=== PATIENT | male | born 1960 | race Caucasian/White ===

== ENCOUNTER 2017-01-28 18:55 | Emergency (ER) | payer MEDICARE, OTHER ==
[~2017-01-28 18:55] MED LIST: ALBU17I INH; IBUP800T23 PO; LEXA10TA PO; LIDO5T TD; LORA-392 PO; LOSA25TA31 PO; METO50TA PO; OMEP20TA39 PO; REST30CA PO
[2017-01-28 18:57] VITALS: BP 128/63; PULSE 92; RESP 20; TEMP 98.9; O2SAT 98
--- NOTE | 2017-01-28 23:51 | PD ---
HPI Chief Complaint: Psychiatric Symptoms Time Seen by Provider: 23:47 Travel History International Travel<30 days: No Contact w/Intl Traveler<30days: No Traveled to known affect area: No History of Present Illness HPI Patient comes in requesting psychiatric evaluation for suicidal ideations ongoing since 2010. Patient states he was thinking about jumping off a bridge but instead got on his bike and came here to see about getting help. Patient denies any medical concerns at this time. Denies any chest pain, shortness breath, fevers without pain, nausea, vomiting, back pain, or numbness or tingling anywhere. Patient denies anything making his symptoms better or worse. Patient states that he does have a history of asthma, but continues to smoke and recently smoked some marijuana. PFSH Past Medical History Asthma: Yes (Hx) Blood Disorders: No Anxiety: Yes Depression: Yes Cardiovascular Problems: No Diminished Hearing: No Endocrine: No Genitourinary: No Hepatitis: Yes (Hep C+ per pt - Dx'd December 2013 per pt.) Hypertension: Yes (Per pt.) Immune Disorder: No Musculoskeletal: Yes (RT. 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 ) Past Surgical History Other Surgery: Yes Social History Alcohol Use: Yes (EVERYDAY ) Tobacco Use: Yes (0.5-1PPD PACK DAY) Substance Use: Yes (MARIJUANA ) Allergies-Medications (Allergen,Severity, Reaction): Coded Allergies: Sulfa (Unverified Allergy, Unknown, 01/28/17) Per pt. Uncoded Allergies: Morphine Related Products (Allergy, Unknown, 07/21/14) Per [facility] Pharmacist - [place], [place] location. Reported Meds & Prescriptions Reported Meds & Active Scripts Active Review of Systems Except as stated in HPI: all other systems reviewed are Neg Physical Exam Narrative GENERAL: Well-developed, well nourished, in no acute distress, and non-ill appearing. SKIN: Focused skin assessment warm and dry. HEAD: Atraumatic. Normocephalic. EYES: Pupils equal and round. EOMI. No scleral icterus. No injection or drainage. ENT: No nasal bleeding or discharge. Mucous membranes pink and moist. NECK: Trachea midline. Supple. No nuclear rigidity. CARDIOVASCULAR: Regular rate and rhythm. No murmur appreciated. RESPIRATORY: No accessory muscle use. No respiratory distress. Clear to auscultation. Breath sounds equal bilaterally. MUSCULOSKELETAL: No obvious deformities. No clubbing. No cyanosis. No edema. Full range of motion. NEUROLOGICAL: Awake and alert. No obvious cranial nerve deficits. Motor grossly within normal limits. Normal speech. PSYCHIATRIC: Appropriate mood and affect. Data Data Last Documented VS Vital Signs Date Time Temp Pulse Resp B/P Pulse Ox O2 Delivery O2 Flow Rate FiO2 01/28/17 18:57 98.9 92 20 128/63 98 Room Air Orders Complete Blood Count With Diff (01/28/17 23:46) Comprehensive Metabolic Panel (01/28/17 23:46) Psych Screen (01/28/17 23:46) Drug Screen, Random Urine (01/28/17 23:46) Alcohol (Ethanol) (01/28/17 23:46) Salicylates (Aspirin) (01/28/17 23:46) Tylenol (Acetaminophen) (01/28/17 23:46) Labs Laboratory Tests Test 01/29/17 01/29/17 00:14 00:15 White Blood Count 9.7 TH/MM3 Red Blood Count 3.58 MIL/MM3 Hemoglobin 11.9 GM/DL Hematocrit 34.6 % Mean Corpuscular Volume 96.7 FL Mean Corpuscular Hemoglobin 33.3 PG Mean Corpuscular Hemoglobin 34.4 % Concent Red Cell Distribution Width 13.5 % Platelet Count 331 TH/MM3 Mean Platelet Volume 7.1 FL Neutrophils (%) (Auto) 71.7 % Lymphocytes (%) (Auto) 16.2 % Monocytes (%) (Auto) 8.7 % Eosinophils (%) (Auto) 2.7 % Basophils (%) (Auto) 0.7 % Neutrophils # (Auto) 7.0 TH/MM3 Lymphocytes # (Auto) 1.6 TH/MM3 Monocytes # (Auto) 0.8 TH/MM3 Eosinophils # (Auto) 0.3 TH/MM3 Basophils # (Auto) 0.1 TH/MM3 CBC Comment DIFF FINAL Differential Comment Sodium Level 134 MEQ/L Potassium Level 3.8 MEQ/L Chloride Level 100 MEQ/L Carbon Dioxide Level 25.3 MEQ/L Anion Gap 9 MEQ/L Blood Urea Nitrogen 16 MG/DL Creatinine 1.11 MG/DL Estimat Glomerular Filtration 69 ML/MIN Rate Random Glucose 119 MG/DL Calcium Level 8.4 MG/DL Total Bilirubin 0.2 MG/DL Aspartate Amino Transf 31 U/L (AST/SGOT) Alanine Aminotransferase 51 U/L (ALT/SGPT) Alkaline Phosphatase 74 U/L Total Protein 7.4 GM/DL Albumin 2.5 GM/DL Salicylates Level 2.4 MG/DL Acetaminophen Level LESS THAN 2.0 MCG/ML Ethyl Alcohol Level LESS THAN 3 MG/DL Urine Opiates Screen NEG Urine Barbiturates Screen NEG Urine Amphetamines Screen NEG Urine Benzodiazepines Screen NEG Urine Cocaine Screen NEG Urine Cannabinoids Screen POS MDM Medical Decision Making Medical Screen Exam Complete: Yes Emergency Medical Condition: Yes Differential Diagnosis Homicidal, suicidal, electrolyte abnormality, substance abuse, alcohol intoxication, depression, other Narrative Course Patient was seen and examined. Labs were obtained and reviewed. Patient medically cleared for further treatment and evaluation by psych. Final disposition per psych. Diagnosis Primary Impression: Medical clearance for psychiatric admission Condition: Stable Kemal Wilks Jan 28, 2017 23:51
[2017-01-29 00:41] LABS: BASOPHIL # 0.1 TH/MM3 (0-0.2); BASOPHIL % 0.7 % (0.0-2.0); EOSINOPHIL # 0.3 TH/MM3 (0-0.4); EOSINOPHIL % 2.7 % (0.0-4.0); HEMATOCRIT 34.6 % (39.0-51.0); HEMO FLAGS DIFF FINAL; LYMPH % 16.2 % (9.0-44.0); LYMPHOCYTE # 1.6 TH/MM3 (1.0-4.8); MEAN CELL VOLUME 96.7 FL (80.0-100.0); MEAN CORPUSCULAR HEMOGLOBIN 33.3 PG (27.0-34.0); MEAN CORPUSCULAR HGB CONC 34.4 % (32.0-36.0); MONO % 8.7 % (0.0-8.0); NEUT % 71.7 % (16.0-70.0); PLATELET COUNT 331 TH/MM3 (150-450); RED BLOOD COUNT 3.58 MIL/MM3 (4.50-5.90); RED CELL DISTRIBUTION WIDTH 13.5 % (11.6-17.2); WHITE BLOOD COUNT 9.7 TH/MM3 (4.0-11.0)
[2017-01-29 00:48] LABS: AMPHETAMINE, URINE NEG (NEG); BARBITURATES, URINE NEG (NEG); COCAINE, URINE NEG (NEG)
[2017-01-29 00:54] LABS: ANION GAP 9 MEQ/L (5-15); AST (GOT) 31 U/L (15-37); BICARBONATE 25.3 MEQ/L (21.0-32.0); BLOOD UREA NITROGEN 16 MG/DL (7-18); CHLORIDE 100 MEQ/L (98-107); GLOMERULAR FILTRATION RATE 69 ML/MIN (>89); POTASSIUM 3.8 MEQ/L (3.5-5.1); SODIUM (NA) 134 MEQ/L (136-145)
[2017-01-29 00:57] LABS: ALKALINE PHOSPHATASE 74 U/L (45-117); ALT (GPT) 51 U/L (12-78); TOTAL BILIRUBIN ADULT 0.2 MG/DL (0.2-1.0)
[2017-01-29 01:13] LABS: ACETAMINOPHEN LESS THAN 2.0 MCG/ML (10.0-30.0)
[2017-01-29 07:04] VITALS: BP 135/72; PULSE 72; RESP 16; O2SAT 97
--- NOTE | 2017-01-29 13:56 | PD ---
History of Present Illness Chief Complaint: Psychiatric Symptoms Time Seen by Provider: 13:40 Travel History International Travel<30 Days: No Contact w/Intl Traveler<30days: No Known affected area: No Legal Status Legal Status: Voluntary History of Present Illness: History of Present Illness HPI Patient is a 56 year old male with a reported history of depression who presents on a voluntary basis requesting psychiatric evaluation for suicidal ideations . He reported to ED provider that he "was thinking about jumping off a bridge but instead got on his bike and came here to see about getting help." EMR is reviewed . He has had several visits to ED for psychiatric evaluations. He was admitted to [facility] in 2014. Current toxicology is positive for cannabinoids. he was monitored in [facility] and presented no suicidality. Patient is seen. He is alert and oriented. calm and cooperative. there is no indication of any psychosis, no rich and no significant symptoms of depression. He slept well and ate well. He tells me that he was in care home x 1 week and when he was released he found that his belongings had been taken from his room and therefore he has to move from there . This he reports is causing him " a lot of stress". He came to [facility] " to get some resources" he denies any suicidal or homicidal ideation at this time. he has not taken any psychiatric medication in over one year. PFSH Past Medical History Asthma: Yes (Hx) Blood Disorders: No Anxiety: Yes Depression: Yes Cardiovascular Problems: No Diminished Hearing: No Endocrine: No Genitourinary: No Hepatitis: Yes (Hep C+ per pt - Dx'd December 2013 per pt.) Hypertension: Yes (Per pt.) Immune Disorder: No Musculoskeletal: Yes (RT. 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 ) Past Surgical History Other Surgery: Yes Psychiatric History Psychiatric History Hx Psychiatric Treatment: Hx tx for psychiatry by and . States that he didn't see another one since 2008. Hx BA once before this. No current tx History of Inpatient Treatment: Yes ([facility] in 2014.) Social History Hx Alcohol Use: Yes (EVERYDAY ) Hx Tobacco Use: Yes (0.5-1PPD PACK DAY) Hx Substance Use: Yes (MARIJUANA ) Substance Use Type: Alcohol, Crack, Marijuana, Amphetamines-Stimulants, Nicotine/Cigarettes, Prescription Medications, Benzos (Valium,Xanax), Heroin, Cocaine, Synth Opiates-Pain Pills, Cough-Cold Pills Hx of Substance Use Treatment: No Family Psychiatric History none reported Allergies-Medications (Allergen,Severity, Reaction): Coded Allergies: Sulfa (Unverified Allergy, Unknown, 01/28/17) Per pt. Uncoded Allergies: Morphine Related Products (Allergy, Unknown, 07/21/14) Per [facility] Pharmacist - [place], [place] location. Reported Meds & Prescriptions Reported Meds & Active Scripts Active Review of Systems Except as stated in HPI: all other systems reviewed are Neg Cardiovascular: COMPLAINS OF: Chest pain, Palpitations Exam Alert: Yes Congress: Person (ox4) Mood: Calm Affect: Appropriate Speech: Clear, Logical Eye Contact: Normal Memory Intact: Comment (no impairmetn) Hallucinations: Other (Negative) Delusions: No Suicidal: Ideation (negative) Homicidal: Ideation (Negative) Insight/Judgement poor. not impaired [facility] Medical Decision Making Medical Record Reviewed: Yes Assessment/Plan 56 year old male with reported hx of depression who is under a voluntary status after he presented to ed requesting a psychiatric evaluation as he was feeling stressed. The patient does not present any acute psychiatric symptomatology at this time. No suicidal or homicidal ideation. He is requesting resources for housing. Orders Complete Blood Count With Diff (01/28/17 23:46) Comprehensive Metabolic Panel (01/28/17 23:46) Psych Screen (01/28/17 23:46) Drug Screen, Random Urine (01/28/17 23:46) Alcohol (Ethanol) (01/28/17 23:46) Salicylates (Aspirin) (01/28/17 23:46) Tylenol (Acetaminophen) (01/28/17 23:46) Diet Regular Basic (01/29/17 Breakfast) Diet Regular Basic (01/29/17 Lunch) Results Vital Signs Date Time Temp Pulse Resp B/P Pulse Ox O2 Delivery O2 Flow Rate FiO2 01/29/17 07:04 72 16 135/72 97 Room Air 01/28/17 18:57 98.9 92 20 128/63 98 Room Air Laboratory Tests Test 01/29/17 01/29/17 00:14 00:15 White Blood Count 9.7 Red Blood Count 3.58 Hemoglobin 11.9 Hematocrit 34.6 Mean Corpuscular Volume 96.7 Mean Corpuscular Hemoglobin 33.3 Mean Corpuscular Hemoglobin 34.4 Concent Red Cell Distribution Width 13.5 Platelet Count 331 Mean Platelet Volume 7.1 Neutrophils (%) (Auto) 71.7 Lymphocytes (%) (Auto) 16.2 Monocytes (%) (Auto) 8.7 Eosinophils (%) (Auto) 2.7 Basophils (%) (Auto) 0.7 Neutrophils # (Auto) 7.0 Lymphocytes # (Auto) 1.6 Monocytes # (Auto) 0.8 Eosinophils # (Auto) 0.3 Basophils # (Auto) 0.1 CBC Comment DIFF FINAL Differential Comment Sodium Level 134 Potassium Level 3.8 Chloride Level 100 Carbon Dioxide Level 25.3 Anion Gap 9 Blood Urea Nitrogen 16 Creatinine 1.11 Estimat Glomerular Filtration 69 Rate Random Glucose 119 Calcium Level 8.4 Total Bilirubin 0.2 Aspartate Amino Transf 31 (AST/SGOT) Alanine Aminotransferase 51 (ALT/SGPT) Alkaline Phosphatase 74 Total Protein 7.4 Albumin 2.5 Salicylates Level 2.4 Acetaminophen Level LESS THAN 2.0 Ethyl Alcohol Level LESS THAN 3 Urine Opiates Screen NEG Urine Barbiturates Screen NEG Urine Amphetamines Screen NEG Urine Benzodiazepines Screen NEG Urine Cocaine Screen NEG Urine Cannabinoids Screen POS Diagnosis Primary Impression: Medical clearance for psychiatric admission Additional Impression: Adjustment disorder Psychiatrically Cleared: Yes Referrals: [facility] (Out patient) call for appointment Departure Forms: Tests/Procedures Patient Instructions: General Instructions, Stress (ED) Med/ Other Pt Specific Info: No Meds Exist/No RX given Disposition: 01 DISCHARGE HOME Condition: Stable Problem Qualifiers Additional Impression: Adjustment disorder Qualified Code: F43.22 - Adjustment disorder with anxious mood Deja Agurire Jan 29, 2017 13:56
== END 2017-01-29 15:14 | disposition home or self-care (01) ==
LOC: NEPD 18:55 → NEPJ 01-29 15:14
DX: F43.20 Adjustment disorder, unspecified (principal); F32.9 Major depressive disorder, single episode, unspecified; J45.909 Unspecified asthma, uncomplicated; F41.9 Anxiety disorder, unspecified; B19.20 Unspecified viral hepatitis C without hepatic coma; I10 Essential (primary) hypertension; I25.2 Old myocardial infarction; F17.200 Nicotine dependence, unspecified, uncomplicated
CPT/HCPCS: 80053; 80307; 85025; 99284

== ENCOUNTER 2017-08-26 22:55 | Inpatient (IN) | payer MEDICARE, OTHER ==
[~2017-08-26] VITALS: Ht 172.7 cm; Wt 68.4 kg
[2017-08-26 22:57] VITALS: BP 144/83; PULSE 77; RESP 16; TEMP 97.9; O2SAT 98
[2017-08-26] MEDS ORDERED: RESP: ALBUTEROL 2.5 MG/IPRATROPIUM 0.5 MG NEB (SCH) NEB ONE (23:30)
[2017-08-26] MEDS ORDERED: predniSONE 20 MG TAB PO ONE (23:30)
--- NOTE | 2017-08-26 23:41 | PD ---
HPI Chief Complaint: Respiratory Symptoms Time Seen by Provider: 23:16 Travel History International Travel<30 days: No Contact w/Intl Traveler<30days: No Traveled to known affect area: No History of Present Illness HPI Patient is a 56-year-old homeless male presents emergency department for 2 complaints. The first is that he is feeling suicidal and was trying to go to [email or web address], he states he feels like she has a bronchial infection and so decided to stop and be seen here on his way there. Patient is a smoker, 1 pack per day. Denies any fevers endorses cough, no sputum production, endorsed congestion, cough symptoms for the past 4 days. No body aches no nausea no vomiting. Patient has very vague suicidal statement, no planning. PFSH Past Medical History Asthma: Yes (Hx) Blood Disorders: No Anxiety: Yes Depression: Yes Cardiovascular Problems: No Diminished Hearing: No Endocrine: No Genitourinary: No Hepatitis: Yes (Hep C+ per pt - Dx'd December 2013 per pt.) Hypertension: Yes (Per pt.) Immune Disorder: No Musculoskeletal: Yes (RT. 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 ) Tetanus Vaccination: < 5 Years Past Surgical History Abdominal Surgery: Yes (hernia surgery) Other Surgery: Yes Social History Alcohol Use: Yes (EVERYDAY ) Tobacco Use: Yes (0.5-1PPD PACK DAY) Substance Use: Yes (MARIJUANA, pt states smoked crack yesterday) Allergies-Medications (Allergen,Severity, Reaction): Coded Allergies: Sulfa (Sulfonamide Antibiotics) (Unverified Allergy, Unknown, 08/26/17) Per pt. Uncoded Allergies: Morphine Related Products (Allergy, Unknown, 07/21/14) Per [facility] Pharmacist - [place], [place] location. Reported Meds & Prescriptions Reported Meds & Active Scripts Active Proair Hfa 8.5 GM Inh (Albuterol Sulfate) 90 Mcg/Act Aer 1 Puff INH Q4H PRN 108 mcg/actuation Azithromycin 250 Mg Tab 250 Mg PO DIRECTED Take 2 tabs (500 mg) on day 1 then 1 tab daily x 4 days. Prednisone 20 Mg Tab 60 Mg PO DAILY 4 Days Review of Systems Except as stated in HPI: all other systems reviewed are Neg Physical Exam Narrative GENERAL: Well-developed well-nourished no obvious distress unkempt appearance. SKIN: Focused skin assessment warm/dry. HEAD: Atraumatic. Normocephalic. EYES: Pupils equal and round. No scleral icterus. No injection or drainage. ENT: No nasal bleeding or discharge. Mucous membranes pink and moist. NECK: Trachea midline. No JVD. CARDIOVASCULAR: Regular rate and rhythm. No murmur appreciated. RESPIRATORY: No accessory muscle use. Inspiratory and extra Tory wheezing heard in all lung ziegler, good air entry, no rales no rhonchi, no accessory muscle use, normal respiratory rate. Breath sounds equal bilaterally. GASTROINTESTINAL: Abdomen soft, non-tender, nondistended. Hepatic and splenic margins not palpable. MUSCULOSKELETAL: No obvious deformities. No clubbing. No cyanosis. No edema. NEUROLOGICAL: Awake and alert. No obvious cranial nerve deficits. Motor grossly within normal limits. Normal speech. PSYCHIATRIC: Endorses suicidal ideation without planning. Denies homicidal ideation, denies audiovisual hallucinations per Data Data Last Documented VS Vital Signs Date Time Temp Pulse Resp B/P (MAP) Pulse Ox O2 Delivery O2 Flow Rate FiO2 08/26/17 22:57 97.9 77 16 144/83 (103) 98 Room Air Orders Orders Complete Blood Count With Diff (08/26/17 23:16) Comprehensive Metabolic Panel (08/26/17 23:16) Psych Screen (08/26/17 23:16) Drug Screen, Random Urine (08/26/17 23:16) Alcohol (Ethanol) (08/26/17 23:16) Thyroid Stimulating Hormone (08/26/17 23:16) Chest, Pa & Lat (08/26/17 ) Albuterol-Ipratropium Neb (Duoneb Neb) (08/26/17 23:30) Prednisone (Deltasone) (08/26/17 23:30) Labs Laboratory Tests Test 08/27/17 00:00 White Blood Count 9.9 TH/MM3 Red Blood Count 4.09 MIL/MM3 Hemoglobin 13.6 GM/DL Hematocrit 39.1 % Mean Corpuscular Volume 95.6 FL Mean Corpuscular Hemoglobin 33.2 PG Mean Corpuscular Hemoglobin Concent 34.7 % Red Cell Distribution Width 14.6 % Platelet Count 244 TH/MM3 Mean Platelet Volume 7.3 FL Neutrophils (%) (Auto) 85.7 % Lymphocytes (%) (Auto) 10.4 % Monocytes (%) (Auto) 3.6 % Eosinophils (%) (Auto) 0.0 % Basophils (%) (Auto) 0.3 % Neutrophils # (Auto) 8.5 TH/MM3 Lymphocytes # (Auto) 1.0 TH/MM3 Monocytes # (Auto) 0.4 TH/MM3 Eosinophils # (Auto) 0.0 TH/MM3 Basophils # (Auto) 0.0 TH/MM3 CBC Comment DIFF FINAL Differential Comment MDM Medical Decision Making Medical Screen Exam Complete: Yes Emergency Medical Condition: Yes Differential Diagnosis Bronchitis, suicidal ideation, poor social circumstance. Narrative Course Patient room to the emergency department, sinus symptoms consistent with bronchitis, will cover with prednisone rishi ballesteros ordered a chest x-ray ordered, basic labs ordered, after reassessment after breathing treatments patient would be medically cleared, if you would like to stay here for voluntary evaluation I think that is reasonable. I do not think he meets Onofre act criteria at this time After his breathing treatments his lungs have been cleared, and reassessment he is breathing normally eating some snacks from his back. On further history the patient lost his 6 years ago on ' and has been depressed and suicidal today but he has no specific plan. He would like to stay on a voluntary basis and speak with 1 of our psychiatrists in the morning. I think this is reasonable. He is medically cleared for psychiatric evaluation Diagnosis Primary Impression: Bronchitis Med/Other Pt SpecificInfo: Prescription(s) given Scripts Albuterol 8.5 GM Inh (Proair Hfa 8.5 GM Inh) 90 Mcg/Act Aer 1 PUFF INH Q4H Y for SHORTNESS OF BREATH, #1 INHALER 0 Refills 108 mcg/actuation Prov: Luis Sellers MD 08/27/17 Azithromycin (Azithromycin) 250 Mg Tab 250 MG PO DIRECTED for Infection, #6 TAB 0 Refills Take 2 tabs (500 mg) on day 1 then 1 tab daily x 4 days. Prov: Luis Sellers MD 08/27/17 Prednisone (Prednisone) 20 Mg Tab 60 MG PO DAILY for 4 Days, #12 TAB 0 Refills Prov: Luis Sellers MD 08/27/17 Condition: Stable Luis Sellers MD Aug 26, 2017 23:41
--- NOTE | 2017-08-26 23:56 | RADRPT ---
EXAM DATE/TIME: 08/26/2017 23:38 [facility] COMPARISON: No previous studies available for comparison. INDICATIONS : Short of breath and cough. MEDICAL HISTORY : None. SURGICAL HISTORY : None. ENCOUNTER: Initial ACUITY: 1 day PAIN SCORE: 0/10 LOCATION: Bilateral chest FINDINGS: Hyperinflation and attenuated lung markings suggest underlying emphysema. Heart size is normal. Lungs are clear. Osseous structures demonstrate degenerative changes. CONCLUSION: Emphysema suspected. Omkar Bernardo MD on August 26, 2017 at 23:54 Board Certified Radiologist. This report was verified electronically.
[2017-08-27] MEDS ORDERED: PRED20 PO
[2017-08-27] MEDS ORDERED: AZIT250T3 PO
[2017-08-27] MEDS ORDERED: ALBUAER3 INH
[2017-08-27 00:17] LABS: AUTOMATED NEUTROPHIL # 8.5 TH/MM3 (1.8-7.7); BASOPHIL % 0.3 % (0.0-2.0); HEMATOCRIT 39.1 % (39.0-51.0); HEMOGLOBIN 13.6 GM/DL (13.0-17.0); LYMPH % 10.4 % (9.0-44.0); MEAN CELL VOLUME 95.6 FL (80.0-100.0); MEAN CORPUSCULAR HEMOGLOBIN 33.2 PG (27.0-34.0); MEAN CORPUSCULAR HGB CONC 34.7 % (32.0-36.0); MEAN PLATELET VOLUME 7.3 FL (7.0-11.0); MONO % 3.6 % (0.0-8.0); MONOCYTE # 0.4 TH/MM3 (0-0.9); NEUT % 85.7 % (16.0-70.0); PLATELET COUNT 244 TH/MM3 (150-450); RED BLOOD COUNT 4.09 MIL/MM3 (4.50-5.90); RED CELL DISTRIBUTION WIDTH 14.6 % (11.6-17.2); WHITE BLOOD COUNT 9.9 TH/MM3 (4.0-11.0)
[2017-08-27 01:09] LABS: ALBUMIN 3.5 GM/DL (3.4-5.0); ALKALINE PHOSPHATASE 60 U/L (45-117); ALT (GPT) 26 U/L (12-78); AST (GOT) 14 U/L (15-37); BICARBONATE 26.3 MEQ/L (21.0-32.0); BLOOD UREA NITROGEN 22 MG/DL (7-18); CHLORIDE 105 MEQ/L (98-107); CREATININE 1.07 MG/DL (0.60-1.30); GLOMERULAR FILTRATION RATE 72 ML/MIN (>89); GLUCOSE,RANDOM 110 MG/DL (74-106); SODIUM (NA) 140 MEQ/L (136-145); TOTAL BILIRUBIN ADULT 0.3 MG/DL (0.2-1.0)
[2017-08-27 02:54] VITALS: BP 129/71; PULSE 77; RESP 16; O2SAT 97
[2017-08-27 07:15] VITALS: BP 135/82; PULSE 80; RESP 20; TEMP 98.5; O2SAT 98
[2017-08-27 11:57] VITALS: BP 125/75; PULSE 86; RESP 20; TEMP 98.5; O2SAT 98
[2017-08-27 16:48] VITALS: BP 141/77; PULSE 56; RESP 18; TEMP 97.4; O2SAT 97
[2017-08-28 02:17] VITALS: BP 115/63; PULSE 60; RESP 18; O2SAT 98
[2017-08-28 06:34] VITALS: BP 119/73; PULSE 75; RESP 19; O2SAT 99
[2017-08-28 10:30] VITALS: BP 123/77; PULSE 68; RESP 20
[2017-08-28] MEDS ORDERED: NICOTINE 21 MG/24 HR PATCH T-DERMAL ONE (10:45)
--- NOTE | 2017-08-28 11:45 | PD ---
History of Present Illness Chief Complaint: Respiratory Symptoms Time Seen by Provider: 11:00 Travel History International Travel<30 Days: No Contact w/Intl Traveler<30days: No Known affected area: No Legal Status Legal Status: Voluntary History of Present Illness: History of Present Illness HPI Patient is a 56-year-old, homeless male with record history of adjustment disorder and depressive disorder, substance use disorder who presents to emergency department for evaluation of a reported cough and respiratory complaints as well as reporting that he had been feeling suicidal. Upon evaluation by the ED screener the patient reported that " he was going to kill himself because he did not give a shit any way. He stated" there is no point anymore my , I lost my house, the girlfriend I had left. I don' t care anymore" . 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 I had a gun he would've blow my brains out. If I didn't hate water I would've jump off bridge." Electronic medical record is reviewed. Patient has been evaluated here at [facility] and has had 2 previous psychiatric admissions to her psychiatric unit one in 2007 and another one in 2014. Both where for suicidal ideation in context of significant losses reported. Current lab work includes toxicology was just negative for all substances. The patient has been monitored here in [facility] over extended period of time and he has presented no behavioral concerns and no suicidality. Patient is seen with MARISOL Sainz and nurse practitioner Wallace. The patient is awake, alert, male who is dressed in hospital attire. Fair hygiene and grooming. Speech is clear, logical and goal-directed with normal rate and tone. He is vague in terms of specific dates and and symptoms. There is no evidence of any psychosis, no rich or hypomania. The patient does report that he continues to feel suicidal and that he came to the hospital because he was depressed and has been so since 2010 went his . He continues to endorse suicidal ideation with no stated plan. His mood is irritable with poor frustration tolerance. He also reports feeling depressed. Sleep is impaired with difficulty falling asleep, fair appetite, no changes in his level of energy. He goes on to say that he feels pretty hopeless due to his multiple losses. He goes on to state that he is currently not receiving any psychiatric treatment. PFSH Past Medical History Asthma: Yes (Hx) Blood Disorders: No Anxiety: Yes Depression: Yes Cardiovascular Problems: No Diminished Hearing: No Endocrine: No Genitourinary: No Hepatitis: Yes (Hep C+ per pt - Dx'd December 2013 per pt.) Hypertension: Yes (Per pt.) Immune Disorder: No Musculoskeletal: Yes (RT. 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 ) Tetanus Vaccination: < 5 Years Past Surgical History Abdominal Surgery: Yes (hernia surgery) Other Surgery: Yes Psychiatric History Psychiatric History Hx Psychiatric Treatment: Has had 2 previous psychiatric admissions to [facility]. Also reports has been admitted to [facility]. Most recent admission was to a rehabilitation facility. Record history of adjustment disorder and depressive disorder. Reports previous suicidal attempts by overdosing on Xanax, attempting to shoot himself with a pellet gun, and attempting to hang himself. History of Inpatient Treatment: Yes Guns or firearms in home: No Social History Born and raised in [place]. Currently homeless. Completed his GED. Has been twice. His last marriage ended when his in 2010. He has no children. He is on disability for back related issues as well as psychiatric issues. Hx Alcohol Use: Yes (EVERYDAY ) Hx Tobacco Use: Yes (0.5-1PPD PACK DAY) Hx Substance Use: Yes (4pack beer/day-last 1 week ago (when I have the $)) Substance Use Type: Alcohol, Crack, Marijuana, Nicotine/Cigarettes Other Substances Used: 1/2 ppd smoker, marajuana occasionally-last 3 days ago, crack-3 days ago Hx of Substance Use Treatment: Yes (released from [facility] rehabilitation several months ago. Unable to maintain sobriety) Family Psychiatric History 1 on completed suicide many years ago Allergies-Medications (Allergen,Severity, Reaction): Coded Allergies: Sulfa (Sulfonamide Antibiotics) (Unverified Allergy, Unknown, 08/26/17) Per pt. Uncoded Allergies: Morphine Related Products (Allergy, Unknown, 07/21/14) Per [facility] Pharmacist - [place], [place] location. Reported Meds & Prescriptions Reported Meds & Active Scripts Active Proair Hfa 8.5 GM Inh (Albuterol Sulfate) 90 Mcg/Act Aer 1 Puff INH Q4H PRN 108 mcg/actuation Azithromycin 250 Mg Tab 250 Mg PO DIRECTED Take 2 tabs (500 mg) on day 1 then 1 tab daily x 4 days. Prednisone 20 Mg Tab 60 Mg PO DAILY 4 Days Review of Systems Respiratory: COMPLAINS OF: Cough, Sputum production Musculoskeletal: COMPLAINS OF: Back pain Psychiatric: COMPLAINS OF: Depression, Suicidal Ideation Except as stated in HPI: all other systems reviewed are Neg Mental Status Examination Appearance: Appropriate (dressed in hospital pajapas maintaining basic hygiene) Consciousness: Alert Orientation: x4 Motor Activity: Other (patient remained in has bad) Speech: Unremarkable Language: Adequate Fund of Knowledge: Adequate Attention and Concentration: Adequate Memory: Unremarkable (patient is a poor historian.) Mood: Sad, Irritable Affect: Appropriate Thought Process & Associations: Intact, Logical, Goal directed Thought Content: Appropriate Hallucination Type: None Delusion Type: None Suicidal Ideation: Yes Suicidal Plan: No Suicidal Intention: No Homicidal Ideation: No Homicidal Plan: No Homicidal Intention: No Insight: Poor Judgment: Impulsive MDM Medical Decision Making Medical Record Reviewed: Yes Assessment/Plan Patient is a 56-year-old, homeless male with record history of adjustment disorder and depressive disorder, substance use disorder who presents to emergency department for evaluation of a reported cough and respiratory complaints as well as reporting that he had been feeling suicidal. Patient has been monitored in [facility] for extended period of time. He continues to endorse suicidal ideation with no plan reported. Patient's mood is irritable and depressed, poor frustration tolerance, hopeless, unable to contract for safety. Patient at this time will be admitted to inpatient psychiatric unit for further evaluation, stabilization, and initiation of medication, and for safety. Orders Orders Diet Regular Basic (08/27/17 Dinner) Diet Regular Basic (08/28/17 Breakfast) Nicotine 21 Mg Patch.24 Hr (Habitrol 21 (08/28/17 10:45) Diet Regular Basic (08/28/17 Lunch) Results Vital Signs Date Time Temp Pulse Resp B/P (MAP) Pulse Ox O2 Delivery O2 Flow Rate FiO2 08/28/17 10:30 68 20 123/77 (92) Room Air 08/28/17 06:34 75 19 119/73 (88) 99 Room Air 08/28/17 02:17 60 18 115/63 (80) 98 Room Air 08/27/17 16:48 Room Air 08/27/17 16:48 97.4 56 18 141/77 (98) 97 Room Air 08/27/17 11:57 98.5 86 20 125/75 (92) 98 Room Air Diagnosis Primary Impression: Bronchitis Additional Impressions: Adjustment disorder Substance use disorder Cocaine abuse Admitting Information Admitting Physician Requests: Admit Prescriptions Albuterol 8.5 GM Inh (Proair Hfa 8.5 GM Inh) 90 Mcg/Act Aer 1 PUFF INH Q4H Y for SHORTNESS OF BREATH, #1 INHALER 0 Refills 108 mcg/actuation Prov: Luis Sellers MD 08/27/17 Azithromycin (Azithromycin) 250 Mg Tab 250 MG PO DIRECTED for Infection, #6 TAB 0 Refills Take 2 tabs (500 mg) on day 1 then 1 tab daily x 4 days. Prov: Luis Sellers MD 08/27/17 Prednisone (Prednisone) 20 Mg Tab 60 MG PO DAILY for 4 Days, #12 TAB 0 Refills Prov: Luis Sellers MD 08/27/17 Condition: Stable Problem Qualifiers Additional Impressions: Adjustment disorder Qualified Codes: F43.21 - Adjustment disorder with depressed mood Deja Aguirre Aug 28, 2017 11:45
[2017-08-28] MEDS ORDERED: MAGNESIUM HYDROXIDE SUSP 30 ML CUP PO PRN (12:00)
[2017-08-28] MEDS ORDERED: ALUMINUM/MAGNESIUM/SIMETH 30 ML CUP PO PRN (12:00)
[2017-08-28 15:14] VITALS: BP 134/76; PULSE 60; RESP 17; TEMP 97.5; O2SAT 98
[2017-08-29 06:10] VITALS: BP 136/71; PULSE 65; RESP 16; TEMP 97.4; O2SAT 95
[2017-08-29] MEDS: NICOTINE 21 MG/24 HR PATCH T-DERMAL SCH (08:43)
[2017-08-29] MEDS: REMOVE OLD PATCH T-DERMAL SCH (08:43)
[2017-08-29 11:12] LABS: BICARBONATE 32.2 MEQ/L (21.0-32.0); BLOOD UREA NITROGEN 18 MG/DL (7-18); CALCIUM 8.5 MG/DL (8.5-10.1); CHLORIDE 102 MEQ/L (98-107); CREATININE 0.98 MG/DL (0.60-1.30); GLOMERULAR FILTRATION RATE 80 ML/MIN (>89); GLUCOSE,RANDOM 82 MG/DL (74-106); SODIUM (NA) 140 MEQ/L (136-145)
[2017-08-29 11:14] LABS: CHOLESTEROL 101 MG/DL (120-200)
[2017-08-29 11:39] LABS: CHOLESTEROL/ HDL RATIO 2.16 RATIO; HDL CHOLESTEROL 46.6 MG/DL (40.0-60.0); LDL CHOLESTEROL 21 MG/DL (0-99); TRIGLYCERIDES 169 MG/DL (42-150)
[2017-08-29 17:45] VITALS: BP 117/68; PULSE 73; RESP 16; TEMP 97.9; O2SAT 99
--- NOTE | 2017-08-29 18:28 | HHI.HP ---
Provisional Diagnosis Admission Date Aug 28, 2017 at 11:52 [place]. Adjustment disorder with mixed disturbances of emotion and conduct, history EtOH abuse Certification of Person's Competence To Provide Express and Informed Consent I have personally examined Hawk Minor , a person being served at [facility] on, Aug 29, 2017 18:20. Express and informed consent means consent voluntarily given in writing, by a competent person, after sufficient explanation and disclosure of the subject matter involved to enable the person to make a knowing and willful decision without any element of force, fraud, deceit, duress, or other form of constraint or coercion. This person is 18 years of age or older, is not now known to be incompetent to consent to treatment with a guardian advocate, and does not have a health care surrogate or proxy currently making medical treatment decisions. I have found this person to be one of the following: [xxx] Competent to provide express and informed consent, as defined above, for voluntary admission to this facility and is competent to provide express and informed consent for treatment. He/she has the consistent capacity to make well reasoned, willful, and knowing decisions concerning his or her medical or mental health treatment. The person fully and consistently understands the purpose of the admission for examination/placement and is fully capable of personally exercising all rights assured under [place] Incompetent to provide express and informed consent to voluntary admission, and this is incompetent to provide express and informed consent to treatment. The person must be transferred to involuntary status and a petition for a guardian advocate filed with the Circuit Court. [] Refusing to provide express and informed consent to voluntary admission but is competent to provide express and informed consent for treatment. The person must be discharged or transferred to involuntary status. Form shall be completed within 24 hours of a person's arrival at the receiving facility and filed in the clinical record of each person: 1. Admitted on a voluntary basis 2. Permitted to provide express and informed consent to his/her own treatment 3. Allowed to transfer from involuntary to voluntary status 4. Prior to permitting a person to consent to his or her own treatment after having been previously found incompetent to consent to treatment. History of Present Illness Capacity: Has Capacity HPI Patient is a 56 old white male who comes here voluntarily complaining of depression remain though the duct his back in 2010 another family deficits. H is nothing to live for anymore bilious wishes he could . Patient acknowledges being an alcoholic. The minimizes it. States he was in a rehabilitation in [facility] for about 2 weeks prior to some type of a program [facility]. A repeat relocated back to his home in [place]. States she has been drinking heavily until about 4 days ago the depression became even worse. Patient acknowledges suicidal ideation at the present time. He denies voices or visions at this time. He states he has seen a psychiatrist in the past for might be depression anxiety or bipolar disorder. He is on no psychotropics at the present time. Patient states is a mention he is he has no children. He has no support group locally. Both denies any prior physical and/or sexual abuse denies any mental health assess abuse issues and family patient is on disability for multiple back injuries, he states that he has tried sober living but he does not like the structure of the demands for working to help support those places. Review of Systems Constitutional: DENIES: Diaphoretic episodes, Fatigue, Fever, Weight gain, Weight loss, Chills, Dizziness, Change in appetite, Night Sweats Endocrine: DENIES: Heat/cold intolerance, Polydipsia, Polyuria, Polyphagia Eyes: DENIES: Blurred vision, Diplopia, Eye inflammation, Eye pain, Vision loss , Photosensitivity, Double Vision Ears, nose, mouth, throat: DENIES: Tinnitus, Hearing loss, Vertigo, Nasal discharge, Oral lesions, Throat pain, Hoarseness, Ear Pain, Running Nose, Epistaxis, Sinus Pain, Toothache, Odynophagia Respiratory: DENIES: Apneas, Cough, Snoring, Wheezing, Hemoptysis, Sputum production, Shortness of breath Cardiovascular: DENIES: Chest pain, Palpitations, Syncope, Dyspnea on Exertion , PND, Lower Extremity Edema, Orthopnea, Claudication Gastrointestinal: DENIES: Abdominal pain, Black stools, Bloody stools, Constipation, Diarrhea, Nausea, Vomiting, Difficulty Swallowing, Anorexia Genitourinary: DENIES: Sexual dysfunction, Urinary frequency, Urinary incontinence, Urgency, Hematuria, Dysuria, Nocturia, Penile Discharge, Testicular Pain, Testicular Swelling Musculoskeletal: DENIES: Joint pain, Muscle aches, Stiffness, Joint Swelling, Back pain, Neck pain Integumentary: DENIES: Abnormal pigmentation, Nail changes, Pruritus, Rash Hematologic/lymphatic: DENIES: Bruising, Lymphadenopathy Immunologic/allergic: DENIES: Eczema, Urticaria Neurologic: DENIES: Abnormal gait, Headache, Localized weakness, Paresthesias, Seizures, Speech Problems, Tremor, Poor Balance Psychiatric: COMPLAINS OF: Depression, Suicidal Ideation Past Psych History Psychological trauma history Patient denies Violence risk - others (6 mos) Low Violence risk - self (6 mos) Moderate Substance Abuse History Drugs/Alcohol past 12 months Patient active alcohol abuser Past Family Social History Coded Allergies: Sulfa (Sulfonamide Antibiotics) (Unverified Allergy, Unknown, 08/26/17) Per pt. Uncoded Allergies: Morphine Related Products (Allergy, Unknown, 07/21/14) Per [facility] Pharmacist - [place], [place] location. Active Scripts Albuterol 8.5 GM Inh (Proair Hfa 8.5 GM Inh) 90 Mcg/Act Aer, 1 PUFF INH Q4H Y for SHORTNESS OF BREATH, #1 INHALER 0 Refills 108 mcg/actuation Prov:Luis Sellers MD 08/27/17 Azithromycin (Azithromycin) 250 Mg Tab, 250 MG PO DIRECTED for Infection, #6 TAB 0 Refills Take 2 tabs (500 mg) on day 1 then 1 tab daily x 4 days. Prov:Luis Sellers MD 08/27/17 Prednisone (Prednisone) 20 Mg Tab, 60 MG PO DAILY for 4 Days, #12 TAB 0 Refills Prov:Luis Sellers MD 08/27/17 Current Medications Medications (Trade) Dose Ordered Sig/Kofi Route Start Time Stop Time Status Last Admin (Tylenol) 650 mg Q4H PRN PO 08/28/17 12:00 (Milk Of Magnesia Liq) 30 ml DAILY PRN PO 08/28/17 12:00 (Mag-Al Plus Susp Liq) 30 ml Q6H PRN PO 08/28/17 12:00 08/28/17 20:21 (Habitrol 21 Mg Patch.24 Hr) 1 patch DAILY T-DERMAL 08/29/17 09:00 08/29/17 08:43 Miscellaneous Information 1 DAILY T-DERMAL 08/29/17 09:00 08/29/17 08:43 Family Psych History Patient denies Social History Patient is no children is homeless Patient's Strengths (min. 2) Patient able [facility] patient verbal Physical Exam Patient medically cleared ED at the present time patient sitting quietly in all is in no acute distress, patient is in no respiratory distress, no complaints of abdominal pain. Patient moves all 4 extremities without difficulty no abnormal motor movements noted Vital Signs Vital Signs Date Time Temp Pulse Resp B/P (MAP) Pulse Ox O2 Delivery O2 Flow Rate FiO2 08/29/17 17:45 97.9 73 16 117/68 (84) 99 08/28/17 10:30 Room Air Lab Results Test 08/29/17 09:08 Blood Urea Nitrogen 18 MG/DL Creatinine 0.98 MG/DL Random Glucose 82 MG/DL Calcium Level 8.5 MG/DL Sodium Level 140 MEQ/L Potassium Level 3.6 MEQ/L Chloride Level 102 MEQ/L Carbon Dioxide Level 32.2 MEQ/L Anion Gap 6 MEQ/L Estimat Glomerular Filtration Rate 80 ML/MIN Triglycerides Level 169 MG/DL Cholesterol Level 101 MG/DL LDL Cholesterol 21 MG/DL HDL Cholesterol 46.6 MG/DL Cholesterol/HDL Ratio 2.16 RATIO Vitamin B12 Level 320 PG/ML Mental Status Examination Appearance: Appropriate (dressed in [facility] maintaining basic hygiene) Consciousness: Alert Orientation: x4 Motor Activity: Other (patient remained in has bad) Speech: Unremarkable Language: Adequate Fund of Knowledge: Adequate Attention and Concentration: Adequate Memory: Unremarkable (patient is a poor historian.) Mood: Sad, Irritable Affect: Appropriate Thought Process & Associations: Intact, Logical, Goal directed Thought Content: Appropriate Hallucination Type: None Delusion Type: None Suicidal Ideation: Yes Suicidal Plan: No Suicidal Intention: No Homicidal Ideation: No Homicidal Plan: No Homicidal Intention: No Insight: Poor Judgment: Impulsive Assessment & Plan Problem List: (1) Adjustment disorder ICD Codes: F43.20 - Adjustment disorder, unspecified Status: Acute (2) Substance use disorder ICD Codes: F19.90 - Other psychoactive substance use, unspecified, uncomplicated Status: Acute Assessment & Plan Estimated LOS: days patient meets criteria for further observation and assessment for his mood and us for possible withdrawal symptoms. We will also talked with counselor on Thursday to discuss possible sober living situation so the patient does not seem to be very willing to do was required to stay there Discharge Planning To be determined Request HC Surrog/Guard Advoc?: No Problem Qualifiers (1) Adjustment disorder: Qualified Codes: F43.25 - Adjustment disorder with mixed disturbance of emotions and conduct Portillo Avalos MD Aug 29, 2017 18:28
[2017-08-29] MEDS ORDERED: FLUMAZENIL 0.5 MG/5 ML VIAL IV PUSH PRN (18:30)
[2017-08-29] MEDS ORDERED: hydrOXYzine HCL 50 MG TAB PO PRN (18:30)
[2017-08-29] MEDS ORDERED: LORazepam 2 MG TAB PO PRN (18:30)
[2017-08-29] MEDS ORDERED: LORazepam 2 MG/ML VIAL IV PUSH PRN ×4 (18:30)
[2017-08-29] MEDS ORDERED: LORazepam 1 MG TAB PO PRN (18:30)
[2017-08-30 06:00] VITALS: BP 124/77; PULSE 60; RESP 16; TEMP 97.7
[2017-08-30 08:40] LABS: HEMOGLOBIN A1C 5.4 % (4.3-6.0)
[2017-08-30] MEDS: REMOVE OLD PATCH T-DERMAL SCH (08:50)
[2017-08-30] MEDS: NICOTINE 21 MG/24 HR PATCH T-DERMAL SCH (08:50)
[2017-08-30] MEDS ORDERED: NICOTINE 21 MG/24 HR PATCH T-DERMAL SCH (09:00)
[2017-08-30] MEDS ORDERED: PILL SPLITTER OTHER PRN (09:15)
[2017-08-30] MEDS: SERTRALINE HCL 50 MG TAB PO SCH (09:15)
--- NOTE | 2017-08-30 14:24 | HHI.PYPN ---
Subjective Remarks Patient was seen and case discussed with nursing. Patient minimizes his use of substances before admission. CIWA 0. He is irritable and feeling hopeless. He does express vague, superficial suicidal ideation saying "I had a gun and shoot myself." He says his last attempts was 3-4 years ago where he overdosed on his prescription Xanax. Tolerating his medications well and behaving well on the unit. Chief complaint today is insomnia Mental Status Examination Appearance: Appropriate (dressed in [facility] maintaining basic hygiene) Consciousness: Alert Orientation: x4 Motor Activity: Other (patient remained in has bad) Speech: Unremarkable Language: Adequate Fund of Knowledge: Adequate Attention and Concentration: Adequate Memory: Unremarkable (patient is a poor historian.) Mood: Sad, Irritable Affect: Appropriate Thought Process & Associations: Intact, Logical, Goal directed Thought Content: Appropriate Hallucination Type: None Delusion Type: None Suicidal Ideation: Yes Suicidal Plan: Yes (if he had a gun he would shoot himself) Suicidal Intention: No Homicidal Ideation: No Homicidal Plan: No Homicidal Intention: No Insight: Poor Judgment: Impulsive Results Vitals/IOs Vital Signs Date Time Temp Pulse Resp B/P (MAP) Pulse Ox O2 Delivery O2 Flow Rate FiO2 08/30/17 06:00 97.7 60 16 124/77 (93) 08/29/17 17:45 99 08/28/17 10:30 Room Air Assessment & Plan Problem List: (1) Adjustment disorder ICD Codes: F43.20 - Adjustment disorder, unspecified Status: Acute (2) Substance use disorder ICD Codes: F19.90 - Other psychoactive substance use, unspecified, uncomplicated Status: Acute Assessment & Plan *Trazodone 50 mg by mouth daily at bedtime Justification for Cont. Inpt. Patient will decompensate in a less restrictive setting Request HC Surrog/Guard Advoc?: No Problem Qualifiers (1) Adjustment disorder: Qualified Codes: F43.25 - Adjustment disorder with mixed disturbance of emotions and conduct Jamie Antonio DO Aug 30, 2017 14:24
--- NOTE | 2017-08-30 15:20 | EKG ---
Date Performed: 08/29/2017 Time Performed: 13:06:51 PTAGE: 56 years EKG: Sinus rhythm Since previous tracing, no significant change noted NORMAL ECG PREVIOUS TRACING : 12/29/2015 22.34 DOCTOR: Russel Spears Interpretating Date/Time 08/30/2017 15:19:23
[2017-08-30 19:02] VITALS: BP 117/70; PULSE 53; RESP 17; TEMP 98.2; O2SAT 99
[2017-08-30 19:03] VITALS: TEMP 98.2
[2017-08-30] MEDS ORDERED: traZODone HCL 50 MG TAB PO SCH (21:00)
[2017-08-31 06:08] VITALS: BP 145/70; PULSE 60; RESP 17; TEMP 98; O2SAT 98
[2017-08-31] MEDS: NICOTINE 21 MG/24 HR PATCH T-DERMAL SCH (08:15)
[2017-08-31] MEDS: SERTRALINE HCL 50 MG TAB PO SCH (08:15)
[2017-08-31] MEDS: REMOVE OLD PATCH T-DERMAL SCH (08:16)
--- NOTE | 2017-08-31 11:47 | HHI.PYPN ---
Subjective Remarks Patient seen and examined with nurse. Chart reviewed. Case discussed with nursing staff. On my examination today, the patient reports that he has been depressed since his 's passing in 2010 although this has been worse lately because the place where he had been living at had "too much drugs" and so [place]. He denies any suicidal or homicidal ideation presently. Denies any audiovisual hallucinations. Affect remains quite dysphoric. Sleep is reportedly poor. Reports that he will drink alcohol "if others are doing it" although he does not describe himself as a habitual or daily drinker. No other substance use reported. He denies side effects from medications. He does note that he has been on Zoloft in the past, although he may have taken a higher dose, he isn't sure. He does note that he has a history of asthma and is requesting albuterol inhaler as needed. No physical complaints presently. Review of Systems Except as stated in HPI: all other systems reviewed are Neg Mental Status Examination Appearance: Appropriate Consciousness: Alert Orientation: x4 Motor Activity: Other (no motor abnormalities noted. No signs of withdrawal noted.) Speech: Unremarkable Language: Adequate Fund of Knowledge: Adequate Attention and Concentration: Adequate Memory: Unremarkable Mood: Irritable, Other (dysphoric) Affect: Other (restricted and consistent with mood) Thought Process & Associations: Intact, Logical, Linear Thought Content: Appropriate Hallucination Type: None Delusion Type: None Suicidal Ideation: No Suicidal Plan: No Suicidal Intention: No Homicidal Ideation: No Homicidal Plan: No Homicidal Intention: No Insight: Fair Judgment: Impulsive Results Labs Item Value Date Time White Blood Count 9.9 TH/MM3 08/27/17 0000 Hemoglobin 13.6 GM/DL 08/27/17 0000 Platelet Count 244 TH/MM3 08/27/17 0000 Sodium Level 140 MEQ/L 08/29/17 0908 Potassium Level 3.6 MEQ/L 08/29/17 0908 Chloride Level 102 MEQ/L 08/29/17 0908 Carbon Dioxide Level 32.2 MEQ/L H 08/29/17 0908 Blood Urea Nitrogen 18 MG/DL 08/29/17 0908 Creatinine 0.98 MG/DL 08/29/17 0908 Estimat Glomerular Filtration Rate 80 ML/MIN L 08/29/17 0908 Aspartate Amino Transf (AST/SGOT) 14 U/L L 08/27/17 0000 Alanine Aminotransferase (ALT/SGPT) 26 U/L 08/27/17 0000 Alkaline Phosphatase 60 U/L 08/27/17 0000 Vitamin B12 Level 320 PG/ML 08/29/17 0908 Thyroid Stimulating Hormone 3rd Gen 1.450 uIU/ML 08/27/17 0000 Urine Opiates Screen NEG 08/26/17 0248 Urine Barbiturates Screen NEG 08/26/17 0248 Urine Amphetamines Screen NEG 08/26/17 0248 Urine Benzodiazepines Screen NEG 08/26/17 0248 Urine Cocaine Screen NEG 08/26/17 0248 Urine Cannabinoids Screen NEG 08/26/17 0248 Ethyl Alcohol Level LESS THAN 3 MG/DL 08/27/17 0000 Admission labs reviewed. Vitals/IOs Vital Signs Date Time Temp Pulse Resp B/P (MAP) Pulse Ox O2 Delivery O2 Flow Rate FiO2 08/31/17 06:08 98.0 60 17 145/70 (95) 98 08/28/17 10:30 Room Air Assessment & Plan Problem List: (1) Adjustment disorder ICD Codes: F43.20 - Adjustment disorder, unspecified Status: Acute (2) Substance use disorder ICD Codes: F19.90 - Other psychoactive substance use, unspecified, uncomplicated Status: Acute Assessment & Plan Titrate Zoloft to 50 mg daily to target low mood and titrate trazodone 200 mg at bedtime for poor sleep. Add albuterol inhaler. R/B/A for medication changes discussed with patient. Continue to monitor on the inpatient unit. Continue other medications and care as ordered. Justification for Cont. Inpt. Med changes. Monitoring for impairment in safety, none noted. Risk for decompensation in less restrictive environment. Discharge Planning Pending psychiatric stabilization Request HC Surrog/Guard Advoc?: No Problem Qualifiers (1) Adjustment disorder: Qualified Codes: F43.25 - Adjustment disorder with mixed disturbance of emotions and conduct Mauricio Bunch MD Aug 31, 2017 11:47
[2017-08-31] MEDS: traZODone HCL 50 MG TAB PO SCH (23:01)
[2017-08-31] MEDS: ACETAMINOPHEN 325 MG TAB PO PRN (23:02)
[2017-09-01 08:00] VITALS: BP 110/58; PULSE 72; RESP 16; TEMP 97.5; O2SAT 96
[2017-09-01] MEDS: REMOVE OLD PATCH T-DERMAL SCH (09:00)
[2017-09-01] MEDS: ACETAMINOPHEN 325 MG TAB PO PRN (09:05)
[2017-09-01] MEDS: SERTRALINE HCL 50 MG TAB PO SCH (09:05)
[2017-09-01] MEDS: NICOTINE 21 MG/24 HR PATCH T-DERMAL SCH (09:05)
--- NOTE | 2017-09-01 13:54 | HHI.PYPN ---
Subjective Chief Complaint: Depression Remarks Patient seen and examined with nurse. Chart reviewed. Case discussed with nursing staff. Patient reportedly remained seclusive to room but is no behavioral problem. Case discussed in treatment team. On my examination today , patient remains depressed, anhedonic and withdrawn. He denies any suicidal ideation. Sleep was improved with titration of Zoloft. No psychotic symptoms. Denies side effects from medications. No physical complaints. Review of Systems Except as stated in HPI: all other systems reviewed are Neg Mental Status Examination Appearance: Appropriate Consciousness: Alert Orientation: x4 Motor Activity: Other (no abnormal motor movements noted. No signs of any withdrawal noted.) Speech: Unremarkable Language: Adequate Fund of Knowledge: Adequate Attention and Concentration: Adequate Memory: Unremarkable Mood: Irritable, Other (dysphoric) Affect: Other (restricted) Thought Process & Associations: Intact, Logical, Linear Thought Content: Appropriate Hallucination Type: None Delusion Type: None Suicidal Ideation: No Suicidal Plan: No Suicidal Intention: No Homicidal Ideation: No Homicidal Plan: No Homicidal Intention: No Insight: Fair Judgment: Impulsive Results Labs Labs reviewed. No new labs. Vitals/IOs Vital Signs Date Time Temp Pulse Resp B/P (MAP) Pulse Ox O2 Delivery O2 Flow Rate FiO2 09/01/17 08:00 97.5 72 16 110/58 (75) 96 08/28/17 10:30 Room Air Intake and Output 09/01/17 09/01/17 09/02/17 08:00 16:00 00:00 Intake Total 240 ml Balance 240 ml Assessment & Plan Problem List: (1) Adjustment disorder ICD Codes: F43.20 - Adjustment disorder, unspecified Status: Acute (2) Substance use disorder ICD Codes: F19.90 - Other psychoactive substance use, unspecified, uncomplicated Status: Acute Assessment & Plan Continue Zoloft and trazodone as ordered. To consider further titration of Zoloft to target low mood. Continue to monitor on the inpatient unit. I have encouraged participation in groups and unit activities. Continue other medications and care as ordered. Justification for Cont. Inpt. Risk for decompensation and less restrictive environment. Discharge Planning Pending psychiatric stabilization. Request HC Surrog/Guard Advoc?: No Problem Qualifiers (1) Adjustment disorder: Qualified Codes: F43.25 - Adjustment disorder with mixed disturbance of emotions and conduct Mauricio Bunch MD Sep 01, 2017 13:54
[2017-09-01] MEDS: ALBUTEROL SULFATE 90 MCG/ACT HFA 8 GM INHALER INH PRN (17:01)
[2017-09-01 17:48] VITALS: BP 134/70; PULSE 64; RESP 18; TEMP 98.2; O2SAT 98
[2017-09-01] MEDS: traZODone HCL 50 MG TAB PO SCH (21:29)
[2017-09-02 06:11] VITALS: BP 123/68; PULSE 58; RESP 16; TEMP 98; O2SAT 97
[2017-09-02] MEDS: ALBUTEROL SULFATE 90 MCG/ACT HFA 8 GM INHALER INH PRN ×2 (08:15→19:50)
[2017-09-02] MEDS: NICOTINE 21 MG/24 HR PATCH T-DERMAL SCH (08:31)
[2017-09-02] MEDS: SERTRALINE HCL 50 MG TAB PO SCH (08:31)
[2017-09-02] MEDS: REMOVE OLD PATCH T-DERMAL SCH (09:00)
--- NOTE | 2017-09-02 12:18 | HHI.PYPN ---
Subjective Chief Complaint: Depression Remarks Patient seen and examined. Chart reviewed. Case discussed with nursing staff. Mood remains depressed although the patient denies suicidal ideation. Sleep remains somewhat poor subjectively and we discussed titration of the patient's trazodone for this. Continues to seclude in room and remains withdrawn; I have encouraged participation in groups and unit activities. Denies side effects from medications. No physical complaints. Review of Systems Except as stated in HPI: all other systems reviewed are Neg Mental Status Examination Appearance: Appropriate Consciousness: Alert Orientation: x4 Motor Activity: Other (no abnormal motor movements noted. No signs of any withdrawal noted.) Speech: Unremarkable Language: Adequate Fund of Knowledge: Adequate Attention and Concentration: Adequate Memory: Unremarkable Mood: Other (depressed) Affect: Other (restricted) Thought Process & Associations: Intact, Logical, Goal directed, Linear Thought Content: Appropriate Hallucination Type: None Delusion Type: None Suicidal Ideation: No Suicidal Plan: No Suicidal Intention: No Homicidal Ideation: No Homicidal Plan: No Homicidal Intention: No Insight: Fair Judgment: Adequate Results Labs Labs reviewed. No new labs. Vitals/IOs Vital Signs Date Time Temp Pulse Resp B/P (MAP) Pulse Ox O2 Delivery O2 Flow Rate FiO2 09/02/17 06:11 98.0 58 16 123/68 (86) 97 Assessment & Plan Problem List: (1) Adjustment disorder ICD Codes: F43.20 - Adjustment disorder, unspecified Status: Acute (2) Substance use disorder ICD Codes: F19.90 - Other psychoactive substance use, unspecified, uncomplicated Status: Acute Assessment & Plan Titrate trazodone to 150 mg at bedtime for sleep. Continue Zoloft as ordered, although we will likely titrate this agent to target low mood in succeeding days. Continue to monitor on inpatient unit. Continue other medications and care as ordered. Justification for Cont. Inpt. Medication adjustments. Risk for decompensation and less restrictive environment. Discharge Planning Pending psychiatric stabilization. Request HC Surrog/Guard Advoc?: No Problem Qualifiers (1) Adjustment disorder: Qualified Codes: F43.25 - Adjustment disorder with mixed disturbance of emotions and conduct Mauricio Bunch MD Sep 02, 2017 12:18
[2017-09-02 18:00] VITALS: BP 126/83; PULSE 77; RESP 17; TEMP 98.2; O2SAT 100
[2017-09-02] MEDS: ACETAMINOPHEN 325 MG TAB PO PRN (19:50)
[2017-09-02] MEDS: traZODone HCL 50 MG TAB PO SCH (20:05)
[2017-09-03 05:16] VITALS: BP 116/67; PULSE 61; RESP 16; TEMP 97.7; O2SAT 97
[2017-09-03] MEDS: NICOTINE 21 MG/24 HR PATCH T-DERMAL SCH (08:28)
[2017-09-03] MEDS: SERTRALINE HCL 50 MG TAB PO SCH (08:28)
[2017-09-03] MEDS: ACETAMINOPHEN 325 MG TAB PO PRN (08:31)
[2017-09-03] MEDS: REMOVE OLD PATCH T-DERMAL SCH (09:00)
--- NOTE | 2017-09-03 11:22 | HHI.PYPN ---
Subjective Chief Complaint: Depression Remarks Patient seen and examined with nurse. Chart reviewed. Case discussed with nursing staff. On my examination today, the patient continues to complain of some low mood, although he denies suicidal ideation. Remains somewhat withdrawn and anhedonic. No psychotic symptoms. Denies side effects from medications. Agreeable to titration of Zoloft. Complains of some dental pain without associated symptoms of abscess, and I do note dentition is poor. No other physical complaints. Review of Systems Except as stated in HPI: all other systems reviewed are Neg Mental Status Examination Appearance: Appropriate Consciousness: Alert Orientation: x4 Motor Activity: Other (No motor abnormal movements noted.) Speech: Unremarkable Language: Adequate Fund of Knowledge: Adequate Attention and Concentration: Adequate Memory: Unremarkable Mood: Other (depressed, improving somewhat) Affect: Blunt Thought Process & Associations: Intact, Logical, Goal directed, Linear Thought Content: Appropriate Hallucination Type: None Delusion Type: None Suicidal Ideation: No Suicidal Plan: No Suicidal Intention: No Homicidal Ideation: No Homicidal Plan: No Homicidal Intention: No Insight: Fair Judgment: Adequate Results Labs Labs reviewed. No new labs. Vitals/IOs Vital Signs Date Time Temp Pulse Resp B/P (MAP) Pulse Ox O2 Delivery O2 Flow Rate FiO2 09/03/17 05:16 97.7 61 16 116/67 (83) 97 Assessment & Plan Problem List: (1) Adjustment disorder ICD Codes: F43.20 - Adjustment disorder, unspecified Status: Acute (2) Substance use disorder ICD Codes: F19.90 - Other psychoactive substance use, unspecified, uncomplicated Status: Acute Assessment & Plan Titrate Zoloft to 100mg daily for low mood. Continue trazodone as ordered. Benzocaine gel for dental pain. Continue to monitor on an inpatient unit. Encourage participation in groups and unit activities. Continue other care as ordered. Justification for Cont. Inpt. Med changes. Discharge Planning Anticipate discharge beginning of next week. Request HC Surrog/Guard Advoc?: No Problem Qualifiers (1) Adjustment disorder: Qualified Codes: F43.25 - Adjustment disorder with mixed disturbance of emotions and conduct Mauricio Bunch MD Sep 03, 2017 11:22
[2017-09-03] MEDS ORDERED: BENZOCAINE 7.5% ORAL GEL 9.4 GM TUBE OROPHARYNG PRN (15:00)
[2017-09-03 18:12] VITALS: BP 126/69; PULSE 72; RESP 16; TEMP 98.7; O2SAT 98
[2017-09-03] MEDS: traZODone HCL 50 MG TAB PO SCH (20:43)
[2017-09-04 05:48] VITALS: BP 122/62; PULSE 57; RESP 16; TEMP 98; O2SAT 98
[2017-09-04] MEDS: NICOTINE 21 MG/24 HR PATCH T-DERMAL SCH (08:19)
[2017-09-04] MEDS: REMOVE OLD PATCH T-DERMAL SCH (09:00)
[2017-09-04] MEDS ORDERED: SERTRALINE HCL 100 MG TAB PO SCH (09:00)
[2017-09-04] MEDS ORDERED: ZOLO100T PO (10:37)
[2017-09-04] MEDS ORDERED: TRAZ50TA12 PO (10:37)
--- NOTE | 2017-09-04 10:38 | HHI.DS ---
Psychiatry Discharge Summary Inpatient Psychiatric care?: Yes Advance Directive: No Mental Health AdvanceDirective: No Health Care Proxy: No Admission Admission Date Aug 28, 2017 at 11:52 Admission Diagnosis: (1) Adjustment disorder ICD Code: F43.20 - Adjustment disorder, unspecified (2) Substance use disorder ICD Code: F19.90 - Other psychoactive substance use, unspecified, uncomplicated Brief History Patient is a 56 old white male who comes here voluntarily complaining of depression remain though the duct his back in 2010 another family deficits. H is nothing to live for anymore bilious wishes he could . Patient acknowledges being an alcoholic. The minimizes it. States he was in a rehabilitation in [facility] for about 2 weeks prior to some type of a program [facility]. A repeat relocated back to his home in [place]. States she has been drinking heavily until about 4 days ago the depression became even worse. Patient acknowledges suicidal ideation at the present time. He denies voices or visions at this time. He states he has seen a psychiatrist in the past for might be depression anxiety or bipolar disorder. He is on no psychotropics at the present time. Patient states is a mention he is he has no children. He has no support group locally. Both denies any prior physical and/or sexual abuse denies any mental health assess abuse issues and family patient is on disability for multiple back injuries, he states that he has tried sober living but he does not like the structure of the demands for working to help support those places. Tobacco Use In Past 30 Days: 5 or More Cigarettes/Day Alcohol Use: 2-3 Times Per Week Hospital Course Patient was admitted to a locked, inpatient psychiatric unit. Appropriate precautions were in place throughout patient's hospital stay. Patient was seen and examined on the unit by psychiatry and also visited by counselor. Psychotropic medications were adjusted. Patient tolerated medication changes well without side effects. Patient had improvement in presenting psychiatric symptomatology during the course of his hospital stay. There was no evidence of any suicidality or homicidality on the inpatient unit. The patient remained in good behavioral control and was medication compliant. Counselor reports that he has endeavored to arrange for placement for the patient, as he is otherwise homeless, but the patient has declined counselor's efforts. On the day of discharge: Patient seen and examined with nurse. Chart reviewed. Case discussed with nursing staff. No behavioral issues noted overnight. Case discussed in treatment team. On my examination today, the patient denies any suicidal or homicidal ideation, intent or plan on direct questioning and contracts for safety. Mood is fair and I can elicit no depressive or hypomanic/ manic symptoms at this time. He denies any audiovisual hallucinations. I can elicit no delusional beliefs. There is no evidence of any impairment in reality construction. He denies side effects from medications. He has no physical complaints. Suicide and violence risk assessment on day of discharge both suggest lower imminent risk, and the patient's level of function is adequate for outpatient care. The patient has maximized benefit from this inpatient psychiatric hospital stay and will be discharged today with psychiatric follow-up as arranged by counselor. Patient is also to follow-up with primary care. I've counseled the patient to abstain from substances of abuse. I have counseled the patient regarding warning signs for need to return to the psychiatric emergency room as part of the general safety plan. Results Blood Pressure 122 / 62 Vital Signs Date Time Temp Pulse Resp B/P (MAP) Pulse Ox O2 Delivery O2 Flow Rate FiO2 09/04/17 05:48 98.0 57 16 122/62 (82) 98 Laboratory Results Test 08/29/17 09:08 Cholesterol Level 101 MG/DL (120-200) HDL Cholesterol 46.6 MG/DL (40.0-60.0) Hemoglobin A1c 5.4 % (4.3-6.0) LDL Cholesterol 21 MG/DL (0-99) Triglycerides Level 169 MG/DL (42-150) Summary of Procedures None done Imaging Last Impressions Chest X-Ray 08/26/17 0000 Signed Impressions: Service Date/Time: Saturday, August 26, 2017 23:38 - CONCLUSION: Emphysema suspected. Omkar Bernardo MD Pending results at discharge: No Medications # of Antipsychotic meds at D/C: 0 Approp Antipsych med options 1 - Minimum of three failed multiple trials of monotherapy. 2 - Documented plan to taper to monotherapy due to previous use of multiple meds OR cross-taper in progress at D/C. 3 - Documentation of augmentation of Clozapine. 4 - Justification other than those listed in allowable values 1-3, document here : Discharge Discharge Date: Sep 04, 2017 Discharge Diagnosis: (1) Adjustment disorder Diagnosis: Principal (resolved) ICD Code: F43.20 - Adjustment disorder, unspecified Status: Acute (2) Substance use disorder Diagnosis: Secondary (counseled to quit) ICD Code: F19.90 - Other psychoactive substance use, unspecified, uncomplicated Status: Acute Pt Condition on Discharge: Stable Discharge Disposition: Discharge Home Discharge Instructions Diet Instructions: As Tolerated, No Restrictions Activities you can perform: Weight Bearing as [place] Scheduled Appointment: as per counselor's notes New Orders: BASIC METABOLIC PROF - 1 Week New Medications: Sertraline (Zoloft) 100 Mg Tab 100 MG PO DAILY for Mental Health for 10 Days, #10 TAB 2 Refills Trazodone (Trazodone) 50 Mg Tab 150 MG PO HS for Mental Health for 10 Days, TAB 2 Refills Continued Medications: Albuterol 8.5 GM Inh (Proair Hfa 8.5 GM Inh) 90 Mcg/Act Aer 1 PUFF INH Q4H PRN for SHORTNESS OF BREATH, #1 INHALER 0 Refills 108 mcg/actuation Azithromycin (Azithromycin) 250 Mg Tab 250 MG PO DIRECTED for Infection, #6 TAB 0 Refills Take 2 tabs (500 mg) on day 1 then 1 tab daily x 4 days. Prednisone (Prednisone) 20 Mg Tab 60 MG PO DAILY for 4 Days, #12 TAB 0 Refills Discharge Time <= 30 minutes Mental Status Examination Appearance: Appropriate Consciousness: Alert Orientation: x4 Motor Activity: Other (no motor abnormalities noted. No signs of withdrawal noted.) Speech: Unremarkable Language: Adequate Fund of Knowledge: Adequate Attention and Concentration: Adequate Memory: Unremarkable Mood: Appropriate Affect: Appropriate Thought Process & Associations: Intact, Logical, Goal directed, Linear Thought Content: Appropriate Hallucination Type: None Delusion Type: None Suicidal Ideation: No Suicidal Plan: No Suicidal Intention: No Homicidal Ideation: No Homicidal Plan: No Homicidal Intention: No Insight: Fair Judgment: Adequate (fair) Discharge/Advance Care Plan Health Problems: (1) Adjustment disorder (2) Substance use disorder Goals to promote your health * To prevent worsening of your condition and complications * To maintain your health at the optimal level Directions to meet your goals Take your medications as prescribed Follow your dietary instruction Follow activity as directed Keep your appointments as scheduled Take your immunizations and boosters as scheduled If your symptoms worsen call your PCP, if no PCP go to Urgent Care Center or Emergency Room For 02/02 questions related to your inpatient stay or results of tests pending at discharge, please contact Dr. Mauricio Bunch at Smoking is Dangerous to Your Health. Avoid second hand smoking Problem Qualifiers (1) Adjustment disorder: Qualified Codes: F43.25 - Adjustment disorder with mixed disturbance of emotions and conduct Mauricio Bunch MD Sep 04, 2017 10:38
--- NOTE | 2017-09-07 16:20 | PD.TTN ---
Patient Problems 1. Discharge planning 2. Medication compliance 3. Knowledge deficit 4. Lack of coping skills Progress Toward Goals Provider Present: Dr. Wilson Bunch Provider Input: 09/02 patient is depressed , wide recently, meds adjusted, can go to sober living Psychiatric Counselors Present: Martha Velázquez LCSW Psych Therapist Input: 09/02 was assisted with sober living packets Group Spec/RT/OT/SESAY Present: SHAMA Nunes Group Spec/RT/OT/SESAY Input: 09/02 does not attend groups Martha Velázquez LCSW Sep 07, 2017 16:20
== END 2017-09-04 13:30 | disposition home or self-care (01) | DRG 882 ==
LOC: NEPD 22:55 → NEDA 08-28 11:52 → H270 08-28 12:45 → H260 08-31 18:27
PROVIDERS: ADMIT Psychiatry & Neurology Psychiatry; ATTEND Psychiatry & Neurology Psychiatry
DX: F43.20 Adjustment disorder, unspecified (principal); R45.851 Suicidal ideations; I10 Essential (primary) hypertension; F10.10 Alcohol abuse, uncomplicated; Z59.0 Homelessness; F17.210 Nicotine dependence, cigarettes, uncomplicated; J45.909 Unspecified asthma, uncomplicated; B19.20 Unspecified viral hepatitis C without hepatic coma; I25.2 Old myocardial infarction; F14.10 Cocaine abuse, uncomplicated; Z91.5 Personal history of self-harm; F12.90 Cannabis use, unspecified, uncomplicated; G47.00 Insomnia, unspecified; K08.89 Other specified disorders of teeth and supporting structures
CPT/HCPCS: 71046; 80048; 80053; 80061; 80307; 82607; 83036; 84443; 85025; 93005; 94640; 94664; J7512